=== PATIENT | female | born 1930 | race Caucasian/White ===

== ENCOUNTER 2016-08-22 10:18 | Outpatient (CLI) ==
[2016-08-22 13:30] LABS: BASOPHILS % (AUTO) 0.9 % (0.0-3.0); EOSINOPHILS # (AUTO) 0.2 K/ul (0.0-0.7); EOSINOPHILS % (AUTO) 5.2 % (0.0-7.0); HEMATOCRIT 42.2 % (37.0-47.0); HEMOGLOBIN 13.9 g/dl (12.0-16.0); IMMATURE GRANULOCYTE % (AUTO) 0.2 % (0.0-5.0); LYMPHOCYTES # (AUTO) 1.3 K/uL (0.60-3.4); LYMPHOCYTES % (AUTO) 28.2 (10.0-50.0); MEAN CORPUSCULAR HEMOGLOBIN 30.8 pg (27.0-31.0); MEAN CORPUSCULAR HGB CONC 32.9 (31.8-35.4); MEAN CORPUSCULAR VOLUME 93.6 fl (81.0-99.0); MONOCYTES # (AUTO) 0.6 K/uL (0.4-2.0); MONOCYTES % (AUTO) 12.9 (0-10); NEUTROPHILS # (AUTO) 2.3 K/ul (2.0-6.9); NEUTROPHILS % (AUTO) 52.6; PLATELET COUNT 179 10^3/uL (140-440); RED BLOOD COUNT 4.51 10^6/ul (4.20-5.40); WHITE BLOOD COUNT 4.43 K/ul (4.6-10.2)
[2016-08-22 13:34] LABS: BILIRUBIN,URINE Negative (NEGATIVE); KETONES,URINE Negative (NEGATIVE); LEUKOCYTE ESTERASE ,URINE Negative (NEGATIVE); NITRITE,URINE Negative (NEGATIVE); PH,URINE 7.5 (5-9); PROTEIN,URINE Negative (NEGATIVE); URINE, BLOOD Trace-lysed (NEGATIVE)
[2016-08-22 13:46] LABS: ADD URINE MICROSCOPIC YES
[2016-08-22 13:47] LABS: ALBUMIN 3.5 g/dL (3.4-5.0); ALBUMIN/GLOBULIN RATIO 0.97; ANION GAP 12.9; BILIRUBIN,TOTAL 0.75 mg/dL (0.00-1.20); BUN/CREATININE RATIO 10.71; CALCIUM 10.3 mg/dL (8.2-10.2); CHOL/HDL RATIO 4.3 (4.5-5.5); CREATININE 0.84 mg/dL (0.60-1.30); POTASSIUM 3.9 mmol/L (3.5-5.10); TOTAL PROTEIN 7.1 g/dL (5.8-8.1)
== END 2016-08-22 10:19 | disposition home or self-care (01) ==
LOC: LAB 10:18
PROVIDERS: ATTEND General Practice
DX: E03.9 Hypothyroidism, unspecified (principal); M79.89 Other specified soft tissue disorders; Z79.899 Other long term (current) drug therapy
CPT/HCPCS: 36415; 80053; 80061; 81001; 85025

== ENCOUNTER 2016-11-28 08:04 | Outpatient (CLI) ==
[2016-11-28 13:28] LABS: BASOPHILS % (AUTO) 0.9 % (0.0-3.0); EOSINOPHILS # (AUTO) 0.2 K/ul (0.0-0.7); EOSINOPHILS % (AUTO) 3.9 % (0.0-7.0); HEMATOCRIT 43.2 % (37.0-47.0); HEMOGLOBIN 14.4 g/dl (12.0-16.0); LYMPHOCYTES # (AUTO) 1.3 K/uL (0.60-3.4); LYMPHOCYTES % (AUTO) 30.3 (10.0-50.0); MEAN CORPUSCULAR HEMOGLOBIN 30.9 pg (27.0-31.0); MEAN CORPUSCULAR HGB CONC 33.3 (31.8-35.4); MEAN CORPUSCULAR VOLUME 92.7 fl (81.0-99.0); MONOCYTES # (AUTO) 0.6 K/uL (0.4-2.0); MONOCYTES % (AUTO) 14.1 (0-10); NEUTROPHILS # (AUTO) 2.2 K/ul (2.0-6.9); NEUTROPHILS % (AUTO) 50.8; PLATELET COUNT 165 10^3/uL (140-440); RED BLOOD COUNT 4.66 10^6/ul (4.20-5.40); WHITE BLOOD COUNT 4.32 K/ul (4.6-10.2)
[2016-11-28 13:55] LABS: BILIRUBIN,URINE Negative (NEGATIVE); KETONES,URINE Negative (NEGATIVE); LEUKOCYTE ESTERASE ,URINE Negative (NEGATIVE); NITRITE,URINE Negative (NEGATIVE); PROTEIN,URINE Negative (NEGATIVE); URINE, BLOOD Negative (NEGATIVE)
[2016-11-28 13:58] LABS: ADD URINE MICROSCOPIC NO
[2016-11-28 14:01] LABS: ALBUMIN 3.5 g/dL (3.4-5.0); ALBUMIN/GLOBULIN RATIO 0.97; ANION GAP 13.9; BILIRUBIN,TOTAL 0.88 mg/dL (0.00-1.20); BUN/CREATININE RATIO 13.41; CALCIUM 9.8 mg/dL (8.2-10.2); CREATININE 0.82 mg/dL (0.60-1.30); POTASSIUM 3.9 mmol/L (3.5-5.10); TOTAL PROTEIN 7.1 g/dL (5.8-8.1)
== END 2016-11-28 08:05 | disposition home or self-care (01) ==
LOC: LAB 08:04
PROVIDERS: ATTEND General Practice
DX: E03.9 Hypothyroidism, unspecified (principal); Z79.899 Other long term (current) drug therapy
CPT/HCPCS: 36415; 80053; 80061; 81001; 85025

== ENCOUNTER 2017-03-09 14:46 | Outpatient (CLI) ==
[2017-03-12 13:06] VITALS: BMI 24.8
== END 2017-03-09 14:47 | disposition home or self-care (01) ==
LOC: CAR 14:46
PROVIDERS: ATTEND General Practice
DX: I49.9 Cardiac arrhythmia, unspecified (principal)
CPT/HCPCS: 36415; 80053; 81001; 84443; 84484; 85025; 87086; 93005; 93010

== ENCOUNTER 2017-03-09 15:12 | Outpatient (CLI) ==
[2017-03-09 16:19] LABS: BILIRUBIN,URINE Negative (NEGATIVE); KETONES,URINE Negative (NEGATIVE); LEUKOCYTE ESTERASE ,URINE Trace (NEGATIVE); NITRITE,URINE Negative (NEGATIVE); PROTEIN,URINE Negative (NEGATIVE); URINE, BLOOD Negative (NEGATIVE)
[2017-03-09 16:21] LABS: BASOPHILS % (AUTO) 0.7 % (0.0-3.0); EOSINOPHILS # (AUTO) 0.1 K/ul (0.0-0.7); EOSINOPHILS % (AUTO) 1.2 % (0.0-7.0); HEMATOCRIT 41.5 % (37.0-47.0); HEMOGLOBIN 14.5 g/dl (12.0-16.0); IMMATURE GRANULOCYTE % (AUTO) 0.2 % (0.0-5.0); LYMPHOCYTES # (AUTO) 1.3 K/uL (0.60-3.4); LYMPHOCYTES % (AUTO) 22.3 (10.0-50.0); MEAN CORPUSCULAR HEMOGLOBIN 31.5 pg (27.0-31.0); MEAN CORPUSCULAR HGB CONC 34.9 (31.8-35.4); MEAN CORPUSCULAR VOLUME 90.2 fl (81.0-99.0); MONOCYTES # (AUTO) 0.6 K/uL (0.4-2.0); MONOCYTES % (AUTO) 10.5 (0-10); NEUTROPHILS # (AUTO) 3.9 K/ul (2.0-6.9); NEUTROPHILS % (AUTO) 65.1; PLATELET COUNT 163 10^3/uL (140-440); WHITE BLOOD COUNT 6.02 K/ul (4.6-10.2)
[2017-03-09 16:25] LABS: ADD URINE MICROSCOPIC YES
[2017-03-09 16:27] LABS: BACTERIA,URINE 1+ (NOT PRESENT)
[2017-03-09 16:58] LABS: ALANINE AMINOTRANSFERASE 13 U/L (12-78); ALBUMIN 3.7 g/dL (3.4-5.0); ALBUMIN/GLOBULIN RATIO 1.12; ALKALINE PHOSPHATASE 52 U/L (53-141); ANION GAP 16.6; ASPARTATE AMINO TRANSFERASE 23 U/L (15-37); BILIRUBIN,TOTAL 0.69 mg/dL (0.00-1.20); BLOOD UREA NITROGEN 13 mg/dL (7-18); CALCIUM 10.3 mg/dL (8.2-10.2); CARBON DIOXIDE 27 mmol/L (23-31); CHLORIDE 102 mmol/L (98-107); CREATININE 0.97 mg/dL (0.60-1.30); GLUCOSE 141 mg/dL (82-115); POTASSIUM 3.6 mmol/L (3.5-5.10); SODIUM 142 mmol/L (136-145)
[2017-03-12 13:06] VITALS: BMI 24.8
== END 2017-03-09 15:13 | disposition home or self-care (01) ==
LOC: LAB 15:12
PROVIDERS: ATTEND General Practice
DX: I49.9 Cardiac arrhythmia, unspecified (principal); E03.9 Hypothyroidism, unspecified; Z79.899 Other long term (current) drug therapy
CPT/HCPCS: 36415; 80053; 81001; 84443; 84484; 85025; 87086

== ENCOUNTER 2017-04-04 11:15 | Outpatient (CLI) ==
[2017-03-12 13:06] VITALS: BMI 24.8
== END 2017-04-04 11:16 | disposition home or self-care (01) ==
LOC: CAR 11:15
PROVIDERS: ATTEND General Practice
DX: I49.9 Cardiac arrhythmia, unspecified (principal)
CPT/HCPCS: 93005; 93010

== ENCOUNTER 2017-05-23 13:56 | Outpatient (CLI) ==
[2017-03-12 13:06] VITALS: BMI 24.8
[2017-05-23 14:27] LABS: BASOPHILS % (AUTO) 0.9 % (0.0-3.0); EOSINOPHILS # (AUTO) 0.2 K/ul (0.0-0.7); EOSINOPHILS % (AUTO) 4.5 % (0.0-7.0); HEMATOCRIT 39.5 % (37.0-47.0); HEMOGLOBIN 13.9 g/dl (12.0-16.0); IMMATURE GRANULOCYTE % (AUTO) 0.2 % (0.0-5.0); LYMPHOCYTES # (AUTO) 1.8 K/uL (0.60-3.4); LYMPHOCYTES % (AUTO) 39.1 (10.0-50.0); MEAN CORPUSCULAR HEMOGLOBIN 31.7 pg (27.0-31.0); MEAN CORPUSCULAR HGB CONC 35.2 (31.8-35.4); MONOCYTES # (AUTO) 0.6 K/uL (0.4-2.0); MONOCYTES % (AUTO) 12.3 (0-10); NEUTROPHILS # (AUTO) 1.9 K/ul (2.0-6.9); PLATELET COUNT 146 10^3/uL (140-440); RED BLOOD COUNT 4.39 10^6/ul (4.20-5.40); WHITE BLOOD COUNT 4.48 K/ul (4.6-10.2)
[2017-05-23 14:29] LABS: BILIRUBIN,URINE Negative (NEGATIVE); KETONES,URINE Negative (NEGATIVE); LEUKOCYTE ESTERASE ,URINE Negative (NEGATIVE); NITRITE,URINE Negative (NEGATIVE); PROTEIN,URINE Negative (NEGATIVE); URINE, BLOOD Trace-intact (NEGATIVE)
[2017-05-23 14:31] LABS: ADD URINE MICROSCOPIC YES
[2017-05-23 15:21] LABS: ALBUMIN 3.3 g/dL (3.4-5.0); ANION GAP 11.8; BILIRUBIN,TOTAL 0.82 mg/dL (0.00-1.20); BUN/CREATININE RATIO 13.33; CALCIUM 10.5 mg/dL (8.2-10.2); CHOL/HDL RATIO 4.7 (4.5-5.5); CREATININE 0.9 mg/dL (0.60-1.30); POTASSIUM 3.8 mmol/L (3.5-5.10); TOTAL PROTEIN 6.6 g/dL (5.8-8.1)
== END 2017-05-23 13:57 | disposition home or self-care (01) ==
LOC: LAB 13:56
PROVIDERS: ATTEND General Practice
DX: R94.31 Abnormal electrocardiogram [ECG] [EKG] (principal); E03.9 Hypothyroidism, unspecified; Z79.899 Other long term (current) drug therapy
CPT/HCPCS: 36415; 80053; 80061; 81001; 84443; 85025; 93005; 93010

== ENCOUNTER → 2017-08-28 | Outpatient (POV) ==
[2017-03-12 13:06] VITALS: BMI 24.8
== END ==
LOC: OUTPT 00:01
PROVIDERS: ATTEND Otolaryngology
DX: H91.90 Unspecified hearing loss, unspecified ear (principal)
CPT/HCPCS: 92557; 92567

== ENCOUNTER 2017-09-28 14:58 | Observation (INO) ==
[2017-09-28 15:09] VITALS: BMI 25.6
--- NOTE | 2017-09-28 16:16 | CT ---
EXAM: CT head without contrast HISTORY: Trauma to right side of eye COMPARISON: CT head 03/12/2017 and 01/23/2008 TECHNIQUE: Serial axial images of the brain were obtained from the skull base to the vertex without IV contrast. FINDINGS: The ventricles, cisterns and sulci demonstrate moderate generalized volume loss. The davey -white matter junction is maintained. There is scattered low attenuation in the periventricular whit e matter which is unchanged.No midline shift or mass is identified. There is no abnormal intra or ex tra-axial fluid collection. The paranasal sinuses and mastoid air cells are clear. The osseous calv arium is intact. There is a significant right periorbital hematoma. IMPRESSION: 1. No acute intracranial abnormality or hemorrhage. 2. Large right periorbital hematoma with no adjacent fracture. 3. Mild generalized volume loss and scattered microangiopathy.
--- NOTE | 2017-09-28 16:18 | CT ---
EXAM: CT cervical spine. HISTORY: Fall. TECHNIQUE: CT cervical spine without contrast. Detailed axial sections. Coronal and sagittal re-fo rmations. COMPARISON: None FINDINGS: No acute fracture or subluxation is identified. The bones appear demineralized. There is reversal o f normal cervical lordosis. Facet joints are covered. Lateral masses of C1 and C2 are normally ali gned and the odontoid process is intact. Diffuse moderate degenerative disc and facet disease with m ultilevel mild central canal stenosis. No evidence of traumatic central canal stenosis or paraspinal hematoma. Incidental findings of atherosclerotic disease. IMPRESSION: No acute fracture or subluxation.
--- NOTE | 2017-09-28 16:22 | ED.PDOC ---
General ED Provider: Dr. MIRELLA MAIRNO Chief Complaint: Head Injury Stated Complaint: head injury Time Seen by Physician: 15:07 (see photos ) Mode of Arrival: Walk-In Information Source: Patient Exam Limitations: No limitations [facility] Nursing and Triage Documentation Reviewed and Agree: Yes Reviewed sepsis parameters & appropriate labs ordered?: Yes System Inflammatory Response Syndrome: Not Applicable Sepsis Protocol: For patient's 13 years and over: Temp is 96.8 and below OR 101 and greater Pulse >90 BPM Resp >20/minute Acutely Altered Mental Status Are patient's symptoms suggestive of a new infection, such as: -Pneumonia -Skin, Soft Tissue -Endocarditis -UTI -Bone, Joint Infection -Implantable Device -Acute Abdominal Infection -Wound Infection -Meningitis -Blood Stream Catheter Infection -Unknown System Inflammatory Response Syndrome: Not Applicable Trauma/Injury Complaint Exam - Head Injury Complaint/Exam Location of Pain: Reports: Forehead Mechanism of Injury: Reports: Trauma Onset/Duration: 1 hr ago Symptoms Are: Still present Initial Severity: Moderate Current Severity: Moderate Character: Reports: Dull, Throbbing Aggravating: Reports: None Alleviating: Reports: None Associated Signs and Symptoms: Denies: Confusion, Memory loss, Seizure, Epistaxis, Dental malocclusion, Neck pain, Nausea, Vomiting Loss of Consciousness: None Related History: Reports: Similar episode SDH Risk Factors: Present: Elderly, Recent trauma Cervical Spine Injury Risk Factors: Present: None Related Surgical History: Reports: None Immobilization Removed Post Exam: No Glascow Coma Scale (see protocol): 15 Focal Weakness: Present: None Focal Sensory Loss: Present: None Gait: Normal Gag Reflex Present: Yes Rhomberg Test Positive: No Babinski Sign: Negative Right, Negative Left Nexus Low Risk Criteria: No post-midline CS tender, No evidence of intoxicat., No Altered LOC, No focal neuro deficit, No distracting injuries Differential Diagnoses: Sprain, Trauma Review of Systems - Review Of Systems Constitutional: Reports: No symptoms Eyes: Reports: No symptoms Ears, Nose, Mouth, Throat: Reports: No symptoms Respiratory: Reports: No symptoms Cardiac: Reports: No symptoms GI: Reports: No symptoms : Reports: No symptoms Musculoskeletal: Reports: Neck pain Skin: Reports: No symptoms Neurological: Reports: No symptoms Endocrine: Reports: No symptoms Hematologic/Lymphatic: Reports: No symptoms All Other Systems: Reviewed and Negative Past Medical History - Past Medical History Previously Healthy: Yes Endocrine: Reports: Hypothyroid Cardiovascular: Reports: None Respiratory: Reports: None Hematological: Reports: None Gastrointestinal: Reports: None Genitourinary: Reports: None Neuro/Psych: Reports: None Musculoskeletal: Reports: None Cancer: Reports: None Last Menstrual Period: na - Surgical History General Surgical History: Reports: None - Family History Family History: Reports: None - Social History Smoking Status: Never smoker Hx Substance Use: No Alcohol Screening: None - Immunizations Tetanus Shot up to Date: No Physical Exam - Physical Exam Appearance: Well-appearing, No pain distress, Well-nourished Eyes: PEDRO, EOMI, Conjunctiva clear ENT: Ears normal, Nose normal, Oropharynx normal Respiratory: Airway patent, Breath sounds clear, Breath sounds equal, Respirations nonlabored Cardiovascular: RRR, Pulses normal, No rub, No murmur GI/: Soft, Nontender, No masses, Bowel sounds normal, No Organomegaly Musculoskeletal: Normal strength, ROM intact, No edema, No calf tenderness Skin: Warm, Dry (ecchymotic changes right orbit) Neurological: Sensation intact, Motor intact, Reflexes intact, Cranial nerves intact, Alert, Oriented Psychiatric: Affect appropriate, Mood appropriate Interpretation - Radiology Interpretation Radiology Interpretation By: Radiologist Physician Notification - Case Discussed Physician Notified: pmd Time of Notification: 16:24 Admit To: Observation Critical Care Note - Critical Care Note Total Time (mins): 0 Course - Course Orders, Labs, Meds: Orders Category Date Time Status CT CERVICAL SPINE W/O CONTRAST Stat RADS 09/28/17 15:[address] HEAD W/O CONTRAST Stat RADS 09/28/17 15:28 Completed Vital Signs: Temp Pulse Resp BP Pulse Ox 09/28/17 15:04 99.0 F 62 16 167/62 H 97 Departure - Departure Time of Disposition: 16:25 Disposition: PLACED OBSERVATION Discharge Problem: Injury of head Instructions: Head Injury (ED) Condition: Good Pt referred to PMD for follow-up: Yes IPMP verified?: No Additional Instructions: Please call your Family Physician as soon as possible to schedule a follow-up appointment. Allergies/Adverse Reactions: Allergies No Known Allergies Allergy (Unverified 09/28/17 15:01) Home Medications: Ambulatory Orders Aspirin [Aspir 81] 81 mg PO DAILY 09/29/15 Calcium Carbonate [Calcium] 600 mg PO BID 04/27/15 Multivitamin with Minerals [Multiple Vitamin] 1 each PO DAILY 04/27/15 Disposition Discussed With: Patient, Family
[2017-09-28] MEDS ORDERED: SODIUM CHLORIDE 1,000 ML IV STA (16:32)
[2017-09-28] MEDS: COREG PO SCH (19:59)
[2017-09-29] MEDS: SYNTHROID PO SCH (05:44)
[2017-09-29] MEDS ORDERED: ASPIRIN EC PO SCH (08:00)
[2017-09-29] MEDS: COREG PO SCH ×2 (08:09→16:37)
--- NOTE | 2017-09-29 09:23 | DI ---
EXAM: PA and lateral views of the chest HISTORY: Fall COMPARISON: Chest x-ray 04/25/[address] chest 03/12/2017 FINDINGS: The cardiomediastinal silhouette is unchanged with atherosclerotic disease of the aorta. There is no pneumothorax or pleural effusion. There is no consolidation, nodule or mass. The osseou s structures demonstrate degenerative disease of the spine. There is gaseous distension of the bowel beneath the diaphragm is unchanged. IMPRESSION: No acute cardiopulmonary process
--- NOTE | 2017-09-29 09:26 | CT ---
EXAM: CT head without contrast HISTORY: Follow-up head injury COMPARISON: CT head yesterday and 03/12/2017 TECHNIQUE: Serial axial images of the brain were obtained from the skull base to the vertex without IV contrast. FINDINGS: The ventricles, cisterns and sulci are stable. The davey-white matter junction is maintain ed. Scattered low attenuation in the periventricular white matter is unchanged.No midline shift or m ass is identified. There is no abnormal intra or extra-axial fluid collection. The paranasal sinuse s and mastoid air cells are clear. The osseous calvarium is intact. There is a right periorbital hem atoma IMPRESSION: 1. Right periorbital hematoma is relatively unchanged from prior examination with no intracranial he morrhage. 2. No significant interval change from prior examination with generalized volume loss and microangio greg.
[2017-09-30] MEDS: SYNTHROID PO SCH (05:32)
[2017-09-30] MEDS: COREG PO SCH ×2 (08:07→17:11)
[2017-09-30 17:28] VITALS: BP 118/55; TEMP 97.4
--- NOTE | 2017-10-04 09:59 | PN ---
DATE OF VISIT: 09/29/17 SUBJECTIVE: The patient is alert and oriented. The hematoma is about the same and the right eye could not be visualized. No Hemotympanum. The repeat CT of the head showed no acute intracranial processes. The hematoma is identified as it was yesterday. CBC and Chemistries were unremarkable. This patient will probably most like be kept today and see how she does tomorrow. If she remains alert and orient without any significant problems then she most likely be discharged home with some specific instructions to the relative or friend. VITAL SIGNS: Temperature 98.9, pulse 61, blood pressure 115/60, respiratory rate 20, oxygen saturation 94 it was 99 earlier. LUNGS: Still has diminished breath sounds but no rales of wheezing HEART: Slightly irregular ABDOMEN: Unremarkable. The hematoma is about the same. MTDD
--- NOTE | 2017-10-08 08:47 | DS ---
PATIENT IDENTIFICATION: 87 year old female [facility] and was [facility] out when she fell forward after she caught her foot on the floor. She landed on her face producing a large hematoma on the right frontal area. The patient was seen at the emergency room and had CT scan of the head showing no transorbital injury. HOSPITAL COURSE: The patient however was admitted out of concerns that she may have some problems because of the impact of the fall. The relatives were also concerned about her. The patient on initial examination by me was alert, oriented but she could not open her eye on the right. There was a large Hematoma involving the right upper lid and even opening it manually was impossible. The pupil was round about 3mm in size and reactive. There was not hemotympanum on either ear. No signs of hematoma in the scalp. No tenderness in the mastoid areas. The patient denied any headaches or visual disturbances and no loss of consciousness and denied any pain in the neck. The patient also had a CT scan of the cervical spine showing no acute skeletal injury. CHEST: Symmetrical with absence of the left breast from surgery 1974, carcinoma. LUNGS: Breath sound were present in both sides, diminished but not rales or wheezing HEART: Audible and slightly irregular ABDOMEN: Unremarkably The swelling on the right periorbital area has regressed remarkably on the following day that the patient is now able to open her eye. The pupils are equal and reactive. Anterior chamber of the right eye is clear. The patient denies any visual disturbances, denies any headache. The neck has tenderness and no significant pain. A repeat CT of the head was done 09/29/17 showing right periorbital hematoma with no intracranial hemorrhage. No significant interval change from prior examination. CBC is essentially unchanged. Hgb went down slightly from 14.1 to 12.0, hct 40.9 to 37.2 because of hydration. Complete metabolic panel is normal. TSH normal. The patient remained more or less afebrile throughout her hospital stay and highest temperature was 99.0 orally. The vital signs had fluctuated from slightly lower blood pressure to normal. The patient was seen at noon 09/30/17 and during that time the patient was alert and oriented. The periorbital hematoma has regressed remarkably and the pupils are equal and reactive to light. The ears had no hemotympanum. Neck no pain or tenderness and the patient denies any headaches. LUNG: Diminished breath sounds but no rales HEART: Remains slightly irregular The patient had movement of all extremities. The patient at the time of discharge when I went again to see the patient at 5:00 in the afternoon and her vital signs at 5:27pm were temperature 97.4, pulse 64, blood pressure 118/55, respiratory rate 18, oxygen saturation 99 at room air. The patient is ambulatory and stable. I had asked the nurses to ambulate her and observe and indeed they did that and the patient was stable and was willing to go home. We were not able to get in touch with the people that was listed but they had visitors that are willing to bring her home. One was Tiara the pharmacist at the hospital. The patient has a friend that is two doors down from her at the apartment and so I had some arrangement for Tiara to notify the lady two doors down that Ms. Bridges is home and if we could get the phone number of the cousin that she should also be notified that she is now home. The patient claimed that she felt good and was ready to go home. I had talked to the daughter the night before about her going home the following day. The daughter is in [place]. The patient did show good understanding. The patient now has a hearing aid which she has for about two weeks. FINAL DIAGNOSES: 1. Large periorbital hematoma, right secondary to fall, resolving. 2. Cardiac arrhythmia, on Carvedilol 3. Hypothyroidism on replacement therapy 4. 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 Hearing loss, with hearing aide recent PLAN: 1. This patient was instructed to see me that following Sunday and before if she has any concern. 2. If there is any acute significant problem that she should go to the emergency room. SOLOMON
--- NOTE | 2017-10-12 10:16 | HP ---
CHIEF COMPLAINT: Hematoma right forehead and periorbital area. SOURCE OF HISTORY: Patient and friend. HISTORY OF PRESENT ILLNESS: The patient was walking out of the long-term with her friend and her foot caught the floor causing for her to fall forward landing on her face. She did not lose any consciousness at all. She was able to get right up after the fall. The patient was advised to go to the emergency room for further evaluation. The patient had a Ct scan of the head showing no fractures, as well as CT scan of the cervical spine without any acute fractures. The patient was admitted for further observation and diagnosis. PAST PERSONAL HISTORY: The patient had left radical mastectomy in 1974 for breast carcinoma. She also had a previous . FAMILY HISTORY: Father of tuberculosis, mother had COPD, one daughter had pancreatic carcinoma and from the disease. SOCIAL HISTORY: The patient is a and resides alone with a good support from her daughter who is in [place]. She never did smoke and does not drink any alcoholic beverages. MEDICATIONS: Before this admission consisted of: Calcium carbonate 600 mg tablet twice a day Multivitamin with minerals one daily Aspirin 81 mg daily Carvedilol 12.5 mg twice a day Levothyroxine sodium 50 mcg daily ALLERGIES: No known drug allergies. REVIEW OF SYSTEMS: CONSTITUTIONAL: The patient has no fever, no chills and no fatigue. GLUING MACHINE ADJUSTER: Denies any headaches or syncope or seizure problems. VISUAL: Denies any double vision, blurred vision or transient loss of vision. AUDITORY: The patient is hard of hearing. She does understand, however and answers questions correctly if she hears it right. RESPIRATORY: Denies any shortness of breath with usual exertion and no significant cough. CARDIOVASCULAR: Denies any chest pain or chest tightness. GASTROINTESTINAL: Appetite had been satisfactory and no nausea, no anorexia and no vomiting or diarrhea. GENITOURINARY: Denies any pain or urination. MUSCULOSKELETAL: The patient has some joint pains, but not significant. ENDOCRINE: Negative. INTEGUMENT: Denies any rash or pruritus. HEMATOLOGIC: No history of prolonged bleeding. PSYCHIATRIC: Affect is normal. Note: The patient has an ecchymosis and hematoma of the right frontal area above the eyebrow and also the periorbital area. There is no skin break. PHYSICAL EXAMINATION: GENERAL: We have an 87 year old female admitted to the hospital from the emergency room after her fall. She did land on her face. She did not lose any consciousness and does not complain of any pain in the hips or any place else including the area of injury. VITAL SIGNS: On admission to the floor showed a temperature of 97.8, pulse 62, blood pressure 118/69 and was elevated at the emergency room. Respiratory rate 16, oxygen saturation 92 and it was 99 at room air in the emergency room. HEAD: Unremarkable. Scalp with no active dermatitis. FACE: Is symmetrical with the swelling on the right upper lid, as well as the periorbital area. No skin break. EYES: The right eye could not be visualized because of the hematoma. The left pupil is about 3 mm in size and reactive. There is no facial weakness. MOUTH: Unremarkable. THROAT: No inflammation, tumors or exudate. EARS: No hemotympanum on either side. NECK: No masses. No bruit. No tenderness. No rigidity. CHEST: Symmetrical and equal with good expansion. Absence of the left breast from surgery, breast carcinoma. LUNGS: Breath sounds are diminished on both sides. No rales or wheezing. HEART: Audible and slightly irregular with good tones. No murmurs. ABDOMEN: Flat, soft with no remarkable tenderness. No guarding. Bowel sounds are active. No masses palpable. LOWER EXTREMITIES: Essentially symmetrical and equal with no eversion or inversion of the foot and the ankles of both lower extremities are symmetrical. Range of motion of the hip does not produce any pain. UPPER EXTREMITIES: Symmetrical and equal. ASSESSMENT: 1. HEMATOMA OF RIGHT PERIORBITAL AREA AND LOWER RIGHT FRONTAL WITH NO CRANIAL PATHOLOGY. 2. HISTORY OF HYPOTHYROIDISM, REPLACED. 3. HISTORY OF BREAST CARCINOMA LEFT SIDE OPERATED WITH RADICAL 1975. 4. HISTORY OF CARDIAC ARRHYTHMIA, SUPRAVENTRICULAR TACHYCARDIA, INTERMITTENT ON MEDICATION. NOTE: Calcium carbonate may need to be discontinued or add a vitamin D to the regimen. MTDD
== END 2017-09-30 18:31 | disposition home or self-care (01) ==
LOC: ED 14:58 → MEDSURG A 16:43
PROVIDERS: ADMIT General Practice; ATTEND General Practice
DX: S00.11XA Contusion of right eyelid and periocular area, initial encounter (principal); S00.83XA Contusion of other part of head, initial encounter; H57.8 Other specified disorders of eye and adnexa; I49.9 Cardiac arrhythmia, unspecified; E03.9 Hypothyroidism, unspecified; H91.90 Unspecified hearing loss, unspecified ear; W01.0XXA Fall on same level from slipping, tripping and stumbling without subsequent striking against object, initial encounter; Y92.129 Unspecified place in nursing home as the place of occurrence of the external cause; Z85.3 Personal history of malignant neoplasm of breast; Z90.12 Acquired absence of left breast and nipple; Z97.4 Presence of external hearing-aid; Z79.899 Other long term (current) drug therapy
CPT/HCPCS: 36415; 80053; 81001; 84443; 85025; 93005; 93010; 99217; 99219; 99224; 99284

== ENCOUNTER 2018-04-10 12:22 | Outpatient (CLI) | END 2018-04-10 12:23 | disposition home or self-care (01) | LOC: FCC-LAB 12:22 | PROVIDERS: ATTEND General Practice | DX: E03.9 Hypothyroidism, unspecified (principal); I48.2 Chronic atrial fibrillation | CPT/HCPCS: 36415; 80053; 80061; 83880; 84443; 85025 ==

== ENCOUNTER 2018-04-10 13:38 | Outpatient (CLI) ==
--- NOTE | 2018-04-10 14:56 | DI ---
Exam: Chest two-view HISTORY: Difficulty breathing. Comparison: 09/29/2017 Findings: Two views of the chest are submitted. These again demonstrate mild asymmetric elevation o f the right diaphragm with a moderately gas distended colon under the anterior right diaphragm. Ther e is no pneumothorax, edema or lobar consolidation. The cardiac silhouette is at the upper limit of normal size. The thoracic aorta is partially calcified. Mild degenerative findings are noted the sp ine. Impressions: No acute cardiopulmonary disease. The examination appears stable from prior.
== END 2018-04-10 13:39 | disposition home or self-care (01) ==
LOC: RAD 13:38
PROVIDERS: ATTEND General Practice
DX: R06.89 Other abnormalities of breathing (principal)